=== PATIENT | female | born 1990 | race African-American/Black ===

== ENCOUNTER 2018-03-12 04:03 | Emergency (ER) | payer BC ==
[~2018-03-12] VITALS: Ht 170.2 cm; Wt 122.5 kg
[2018-03-12 04:20] VITALS: BP 133/61
--- NOTE | 2018-03-12 04:41 | PHYS DOC ---
Past Medical History Past Medical History: No Pertinent History Past Surgical History: No Surgical History Alcohol Use: Rarely Drug Use: None Adult General Chief Complaint Chief Complaint: BACK PAIN - NO INJURY HPI HPI Patient is a 27 year female who presents with right-sided back pain. This started proximally 2 weeks ago and has been getting worse over time. Patient woke up with this. No trauma. No dysuria. No fever. No personal history of cancer. No loss of bowel or bladder control. Patient has had no relief with over -the-counter Tylenol. Has not taken any anti-inflammatory medication. Has not seen her primary physician for this. No previous history of back pain. Reports that it is moderate to severe in intensity and "sore." Increased pain with movement[] Review of Systems Review of Systems Constitutional: Denies fever or chills [] Eyes: Denies change in visual acuity, redness, or eye pain [] HENT: Denies nasal congestion or sore throat [] Respiratory: Denies cough or shortness of breath [] Cardiovascular: No chest pain or palpitations[] GI: Denies abdominal pain, nausea, vomiting, bloody stools or diarrhea [] : Denies dysuria or hematuria [] Musculoskeletal: See history of present illness[] Integument: Denies rash or skin lesions [] Neurologic: Denies headache, focal weakness or sensory changes [] Endocrine: Denies polyuria or polydipsia [] All other systems were reviewed and found to be within normal limits, except as documented in this note. Current Medications Current Medications Current Medications Medications (Trade) Dose Ordered Sig/[facility] Start Time Stop Time Status Last Admin Dose Admin Ketorolac Tromethamine (Toradol 15mg Vial) 15 mg 1X ONCE 03/12/18 04:45 03/12/18 04:46 DC 03/12/18 04:53 15 MG Orphenadrine Citrate (Norflex) 60 mg 1X ONCE 03/12/18 04:45 03/12/18 04:46 DC 03/12/18 04:54 60 MG Allergies Allergies Allergies Coded Allergies Type Severity Reaction Last Updated Verified No Known Drug Allergies 12/18/13 No Physical Exam Physical Exam Constitutional: Well developed, well nourished, mild discomfort non-toxic appearance. [] HENT: Normocephalic, atraumatic, bilateral external ears normal, oropharynx moist, no oral exudates, nose normal. [] Eyes: PERRLA, EOMI, conjunctiva normal, no discharge. [] Neck: Normal range of motion, no tenderness, supple, no stridor. [] Cardiovascular:Heart rate regular rhythm, no murmur [] Lungs & Thorax: Bilateral breath sounds clear to auscultation [] Abdomen: Bowel sounds normal, soft, no tenderness, no masses, no pulsatile masses. [] Skin: Warm, dry, no erythema, no rash. [] Back: Tenderness of the right lumbar paraspinal musculature. Normal gait. Strength is 5 out of 5. No midline tenderness.[] Extremities: No tenderness, no cyanosis, no clubbing, ROM intact, no edema. [] Neurologic: Alert and oriented X 3, normal motor function, normal sensory function, no focal deficits noted. [] Psychologic: Affect normal, judgement normal, mood normal. [] Current Patient Data Vital Signs Vital Signs Date Time Temp Pulse Resp B/P (MAP) Pulse Ox O2 Delivery O2 Flow Rate FiO2 03/12/18 04:20 98.7 108 18 133/61 (85) 97 Room Air 98.7 Lab Values Laboratory Tests Test 03/12/18 04:20 03/12/18 04:23 Urine Collection Type Unknown Urine Color Yellow Urine Clarity Clear Urine pH 6.0 Urine Specific [place] >=1.030 Urine Protein Negative mg/dL (NEG-TRACE) Urine Glucose (UA) Negative mg/dL (NEG) Urine Ketones (Stick) Negative mg/dL (NEG) Urine Blood Negative (NEG) Urine Nitrite Negative (NEG) Urine Bilirubin Negative (NEG) Urine Urobilinogen Dipstick 0.2 mg/dL (0.2 mg/dL) Urine Leukocyte Esterase Negative (NEG) Urine RBC Occ /HPF (0-2) Urine WBC Occ /HPF (0-4) Urine Squamous Epithelial Cells Few /LPF Urine Bacteria 0 /HPF (0-FEW) Urine Mucus Mod /LPF POC Urine HCG, Qualitative Hcg negative (Negative) EKG EKG [] Radiology/Procedures Radiology/Procedures [] Course & Med Decision Making Course & Med Decision Making Pertinent Labs and Imaging studies reviewed. (See chart for details) Medical decision making: No evidence of cauda equina, no evidence of neurologic or vascular compromise. No evidence of pyelonephritis, no evidence of liver injury. ED course: Patient arrived, was placed in bed, in tolerate exam well. Patient was given IM NSAIDs and muscle relaxers which didn't improve her pain. Patient was discharged in improved condition.[] Dragon Disclaimer Dragon Disclaimer This electronic medical record was generated, in whole or in part, using a voice recognition dictation system. Departure Departure Impression: Primary Impression: Back pain Disposition: HOME, SELF-CARE Condition: GOOD Referrals: NO PCP (PCP) Patient Instructions: Back Pain, Adult Additional Instructions: Follow-up with your regular doctor in 2 days. Take the medication as needed, as prescribed for pain. No driving tonight due to the muscle relaxer you were given. Return to the ER if worsening pain, fever, loss of bowel or bladder control, or any other concerns. Scripts Orphenadrine Citrate (ORPHENADRINE CITRATE) 100 Mg Tablet.er 100 MG PO BID, #20 TAB.SR Prov: MAME MEMBRENO DO 03/12/18 Meloxicam (MELOXICAM) 7.5 Mg Tablet 7.5 MG PO DAILY, #20 TAB Prov: MAME MEMBRENO DO 03/12/18 Problem Qualifiers Primary Impression: Back pain Back pain location: low back pain Chronicity: acute Back pain laterality: right Sciatica presence: without sciatica Qualified Codes: M54.5 - Low back pain MAME MEMBRENO DO Mar 12, 2018 04:41
[2018-03-12] MEDS ORDERED: ORPHENADRINE CITRATE 60 MG/2 ML VIAL. IM ONE (04:45)
[2018-03-12] MEDS ORDERED: KETOROLAC 15 MG/ML VIAL. IM ONE (04:45)
[2018-03-12 04:49] LABS: BILIRUBIN,URINE NEGATIVE (NEG); CLARITY,URINE CLEAR; COLOR,URINE YELLOW; NITRITE,URINE NEGATIVE (NEG); PROTEIN,URINE NEGATIVE (NEG-TRACE); UROBILINOGEN,URINE 0.2 mg/dL (0.2 mg/dL)
[2018-03-12 04:59] LABS: BACTERIA,URINE 0 /HPF (0-FEW); RBC,URINE OCC /HPF (0-2); SQUAMOUS EPITHELIAL CELL,UR FEW /LPF; WBC,URINE OCC /HPF (0-4)
[2018-03-12] MEDS ORDERED: ORPH100T PO (05:07)
[2018-03-12] MEDS ORDERED: MELO7.5T29 PO (05:07)
== END 2018-03-12 05:19 | disposition home or self-care (01) ==
LOC: ER 04:03
DX: M54.5 Low back pain (principal)
CPT/HCPCS: 81001; 81025; 96372; 99284; J1885; J2360